=== PATIENT | male | born 1980 | race American Indian/Alaskan Native ===

== ENCOUNTER 2017-05-23 14:05 | Day surgery (SDC) | payer OTHER ==
[2017-05-23] MEDS ORDERED: NACL 0.9% 1000 ML 1,000 ML IV SCH (15:00)
--- NOTE | 2017-05-23 16:16 | Anesthesia Consultation ---
Anesthesia Consult and Med Hx Date of service: 05/23/17 - Airway Anesthetic Teeth Evaluation: Good ROM Head & Neck: Adequate Mental/Hyoid Distance: Adequate Mallampati Class: Class II Intubation Access Assessment: Probably Good - Pre-Operative Health Status ASA Pre-Surgery Classification: ASA2 Proposed Anesthetic Plan: MAC - Additional Comments Anesthesia Medical History Comments: hemorroids. [employer] [employer] [place]
[2017-05-23] MEDS ORDERED: DIPRIVAN 10 MG/ML IV ONE ×3 (16:17→16:25)
--- NOTE | 2017-05-23 16:17 | Anesthesia Day of Surgery ---
Anesthesia Day of Surgery - Day of Surgery Patient Examined: Yes Patient H&P Reviewed: Yes Patient is NPO: Yes
[2017-05-23] MEDS ORDERED: XYLOCAINE TOPICAL 2% 5ML ONE (16:24)
[2017-05-23] MEDS ORDERED: WATER FOR IRRIG STERILE IR ONE (16:24)
[2017-05-23] MEDS ORDERED: WATER FOR IRRIG STERILE ONE (16:48)
--- NOTE | 2017-05-23 17:06 | Operative Report ---
Operative Report Operative Report: Date of procedure: 05/23/2017 Procedure: Colonoscopy with Hemorrhoidal band ligation. Attending physician: Franklin Neal MD [employer] Buggy Operator: Franklin Neal MD Indication: Patient is a 36-year-old male who presents with recurrent rectal bleeding anorectal discomfort with symptomatic internal hemorrhoids. This procedure is done to evaluate patient so that treatment may be directed based on the findings. Consent: Informed consent was obtained after advising the patient and family regarding nature of this procedure, its indications, potential benefits as well as possible complications including but not limited to bleeding perforation and adverse reaction to medication, infection as well as other cardiopulmonary complications. An informed written and verbal consent was then obtained after due opportunity was provided for questions and answers. Monitoring: Patient was monitored continuously with pulse oximetry and electrocardiographic recordings as well as blood pressure recordings. Vital signs remained stable throughout this procedure with no untoward events. Preoperative assessment: Patient was assessed immediately prior to this procedure for capacity to tolerate monitored anesthesia care and moderate sedation as well as general anesthesia. Patient's ASA classification is 2, Mallampati class is 2, Hyomental distance is 3. Instrument: YouView video colonoscope. Multiband ligator Medications: Propofol given intravenously in divided doses for details please refer to anesthesia records. Description of procedure: Patient was placed in the left lateral decubitus position after achieving sedation, a digital rectal examination was performed following which the colonoscope was introduced into the anal verge and advanced to the cecum which was identified by the cecal valve, the appendiceal orifice, as well as by the cecal strap and direct transillumination. The colonoscope was subsequently withdrawn with careful inspection of all mucosal surfaces. Patient tolerated this procedure well and was subsequently taken to the recovery room. The following findings were noted. Findings: The cecum was normal. Descending colon was normal. Transverse colon was normal. Descending colon was normal. The sigmoid colon was normal. The rectum was normal. On the retroflex view at the anal verge patient had prominent friable internal hemorrhoids. An upper endoscope was preloaded with the multiband ligator reintroduced into the rectum. 2% lidocaine gel was applied in the rectum. In the retroflex view, 5 bands were applied over the hemorrhoids above the dentate line. Patient tolerated procedure well no untoward events. Impression: Prominent internal hemorrhoids status post hemorrhoidal band ligation. Plan: Daily sitz baths. High-fiber diet. Patient to apply lidocaine ointment 5% per rectum every 6 hours as needed. Anusol HC suppositories per rectum every night. Patient to use stool softeners as needed. Miralax 17 g in 8 ounce glass of water has been prescribed. Tramadol 50 mg every 6 hours as needed for pain. Patient is scheduled for further outpatient follow-up. Patients further instructed that if he developes persistent bleeding and /or fevers to call the office immediately.
--- NOTE | 2017-05-23 17:07 | Discharge Summary ---
Short Stay Discharge Plan Activity: advance as tolerated Weight Bearing Status: Weight Bear as Tolerated Diet: regular Follow up with: CHETNA REYNOSO MD [Other] - 7 Days
[2017-05-23] MEDS ORDERED: PERCOCET 5/325 PO PRN (17:19)
[2017-05-23] MEDS ORDERED: PERCOCET 5/325 ONE (17:27)
[2017-05-23 18:30] VITALS: BP 150/89
--- NOTE | 2017-05-23 18:37 | Post Anesthesia Evaluation ---
- Post Anesthesia Evaluation Patient Participated: Yes Airway Patent: Yes Stable Respiratory Function: Yes Nausea/Vomiting: No Temp > 96.8F: Yes Pain Manageable: Yes Adequeate Hydration: Yes Anesthesia Complications: No
== END 2017-05-23 14:06 | disposition home or self-care (01) ==
LOC: GIO 14:05
PROVIDERS: ATTEND Internal Medicine Gastroenterology
DX: K64.8 Other hemorrhoids (principal); R58 Hemorrhage, not elsewhere classified
CPT/HCPCS: 45398; J2704